=== PATIENT | female | born 1980 | race Caucasian/White ===

== ENCOUNTER 2016-05-20 06:46 | Emergency (ER) | payer SELFPAY ==
[~2016-05-20] VITALS: Ht 157.5 cm; Wt 88.9 kg
[2016-05-20 07:31] LABS: Basophils # (auto) 0 uL; Eosinophils # (auto) 0 uL; Eosinophils % (auto) 0.1 % (0.0-7.0); Hematocrit 43.7 % (36.0-46.0); Hemoglobin 14.7 g/dL (12.2-16.2); Lymphocytes % (auto) 8.2 % (10.0-50.0); Mean Corpuscular Hemoglobin 32.5 pg (28.0-32.0); Mean Corpuscular Hgb Conc. 33.7 g/dL (32.0-36.0); Mean Corpuscular Volume 96.7 fL (80.0-100.0); Mean Platelet Volume 8.3 fL (7.4-10.4); Monocytes # (auto) 0.2 uL; Monocytes % (auto) 1.5 % (0.0-12.0); Neutrophils # (auto) 11.1 uL; Neutrophils % (auto) 90.2 % (37.0-80.0); Platelet Count (auto) 368 10^3/uL (140-450); White Blood Cell 12.3 10^3/uL (4.4-10.8)
[2016-05-20 07:43] LABS: BUN/Creatinine Ratio 15.9; Bilirubin, Total 0.4 mg/dL (0.2-1.0); Calcium 9.4 mg/dL (8.5-10.1); Potassium 4.6 mmol/L (3.5-5.1); Total Protein 8.1 g/dL (6.4-8.2)
[2016-05-20] MEDS ORDERED: SODIUM CHLORIDE 0.9% 1,000 ML IV ONE (08:00)
[2016-05-20] MEDS ORDERED: PANTOPRAZOLE SODIUM 40 MG/10 ML VIAL IV ONE (08:00)
[2016-05-20] MEDS ORDERED: MORPHINE SULFATE 4 MG/ML SYRG IV ONE (08:00)
[2016-05-20] MEDS ORDERED: ONDANSETRON HCL 4 MG/2 ML VIAL IV ONE (08:00)
[2016-05-20 09:54] VITALS: BP 108/66
== END 2016-05-20 11:06 | disposition home or self-care (01) ==
LOC: ER 06:54
DX: K80.20 Calculus of gallbladder without cholecystitis without obstruction (principal); K21.9 Gastro-esophageal reflux disease without esophagitis; E87.1 Hypo-osmolality and hyponatremia; R73.9 Hyperglycemia, unspecified; E05.90 Thyrotoxicosis, unspecified without thyrotoxic crisis or storm
CPT/HCPCS: 36415; 71020; 76705; 80053; 83690; 84484; 84702; 85025; 85049; 93005; 96361; 96374; 96375; 99285; C9113; J2270; J2405; J7030

== ENCOUNTER 2021-07-09 19:38 | Emergency (ER) | payer MEDICAID, OTHER ==
[~2021-07-09] VITALS: Ht 157.5 cm; Wt 72.6 kg
[2021-07-09 19:38] VITALS: BP 147/85
[2021-07-09 21:14] LABS: Urine Bacteria FEW /hpf (None Seen); Urine Blood Negative /uL (Negative); Urine Mucus FEW (None Seen); Urine Specific Gravity 1.004 (1.001-1.035); Urine WBC <1 /hpf (0 - 5)
[2021-07-10] MEDS ORDERED: PRED20TA2 PO (02:09)
[2021-07-10] MEDS ORDERED: KETOROLAC TROMETH 30 MG/ML 1ML VIAL IM ONE (02:15)
[2021-07-10] MEDS ORDERED: LIDOCAINE VISCOUS 2% 15ML UD MT ONE (03:15)
== END 2021-07-10 04:48 | disposition home or self-care (01) ==
LOC: ER 19:41
DX: N30.10 Interstitial cystitis (chronic) without hematuria (principal); K21.9 Gastro-esophageal reflux disease without esophagitis; Z88.1 Allergy status to other antibiotic agents; Z32.02 Encounter for pregnancy test, result negative
CPT/HCPCS: 81001; 81025; 96372; 99283; J1885